=== PATIENT | male | born 2005 | race Caucasian/White ===

== ENCOUNTER 2023-01-17 03:44 | Inpatient (IN) | payer BC, SELFPAY ==
[2023-01-17] VITALS (9 sets, daily range): BP systolic 124–158; BP diastolic 69–97; PULSE 73–89; RESP 16–20; TEMP 36.8–37.3; O2SAT 97–100; BMI 19.5
--- NOTE | 2023-01-17 03:50 | PC.NURSE ---
Pt arrived to floor via EMS stretcher @ 5773 from [place].
--- NOTE | 2023-01-17 04:06 | CT_ITS ---
PROCEDURE INFORMATION: Exam: CT Lumbar Spine Without Contrast Exam date and time: 01/17/2023 4:40 AM Age: 17 years old Clinical indication: Numbness; Additional info: Ble numbness TECHNIQUE: Imaging protocol: Computed tomography of the lumbar spine without contrast. Radiation optimization: All CT scans at this facility use at least one of these dose optimization techniques: automated exposure control; mA and/or kV adjustment per patient size (includes targeted exams where dose is matched to clinical indication); or iterative reconstruction. Other protocol: This patient has received 0 known CTs and 0 known cardiac nuclear medicine studies in the 12 months prior to the current study. COMPARISON: No relevant prior studies available. FINDINGS: Bones/joints: No acute fracture. Normal alignment. No significant disc bulge or herniation. No severe spinal canal stenosis. No significant neural foraminal narrowing. Soft tissues: Unremarkable. IMPRESSION: No acute findings.
--- NOTE | 2023-01-17 04:12 | PC.NURSE ---
the patient was being admitted by the nurse and the nurse is to call when they are finished and the patient is ready for exam.
[2023-01-17 04:43] LABS: Basophils # 0.1 K/mm3 (0-0.2); Basophils % 0.3 % (0.1-2.0); Eosinophils % 0.1 % (0.1-12.0); Hematocrit 48.3 % (42.0-52.0); Hemoglobin 15.4 g/dL (14.1-18.0); Lymphocytes # 1.5 K/mm3 (0.7-4.5); Mean Corpuscular HGB Conc 31.8 g/dL (31.8-35.4); Mean Corpuscular Hemoglobin 31.1 pg (27.0-31.2); Mean Platelet Volume 7.5 fl (7.4-10.4); Monocytes % 4.6 % (1.7-9.3); Neutrophils # 18.3 K/mm3 (1.8-7.8); Platelet Count 280 K/mm3 (142-424); Red Blood Count 4.93 M/mm3 (4.60-6.20); Red Cell Distribution Width 13.5 % (11.5-17.5); White Blood Count 20.8 K/mm3 (4.5-13.0)
--- NOTE | 2023-01-17 04:47 | PC.NURSE ---
RECEIVED PHONE REPORT FROM Kayli HILLIARD RN/ED [facility] AT 0245. PATIENT ARRIVED HERE AT [facility] AT 0345 VIA [facility] . TAKES NO HOME MEDS. NKDA. MATERNAL GRANDMOTHER ACCOMPANIED PATIENT. PATIENT LIVES WITH GRANDMOTHER.
[2023-01-17 04:50] LABS: MANUAL DIFFERENTIAL MANUAL DIFFERENTIAL (MANUAL DIFF)
[2023-01-17 04:51] LABS: Alanine Aminotransferase 354 U/L (12-78); Albumin Level 4.4 g/dl (3.5-5.0); Albumin/Globulin Ratio 1.5 (1.1-1.8); Alkaline Phosphatase 84 U/L (38-126); Anion Gap 8.1 mEq/L (5-15); Bilirubin,Total 1.1 mg/dl (0.2-1.3); Blood Urea Nitrogen 29 mg/dl (9-20); Calcium 8.7 mg/dl (8.4-10.2); Carbon Dioxide 27 mmol/L (22.0-30.0); Chloride 107 mmol/L (98-107); Estimated Glomerular Filt Rate 86 ml/min (>60); GFR (African American) 104 ML/MIN (>60); Glucose 93 mg/dl (74-100); Potassium 4.1 mmoL/L (3.5-5.1); Sodium 138 mmol/L (136-145); Total Protein,Serum 7.4 g/dl (6.3-8.2)
--- NOTE | 2023-01-17 04:54 | EXP.HP ---
History of Present Illness *Admission Date: 01/17/23 *Reason for visit:: elevated troponin *History of present illness: This is a 17-year-old male with history of POTS and HOCm, drug abuse who presents as a transfer from [facility] for evaluation of elevated troponin in the setting of known HOCM. Patient initially was seen at [facility] for complaints of lower extremity weakness. He reported laying in bed all day playing video games and when he went to get up he noticed weakness in his lower extremities. Of note, patient had recent overdose approximately 1 month ago. Grandmother at the bedside with whom patient lives with states that he was found unresponsive at that time, required CPR briefly with Narcan and was discharged home without further event. She reports that during the course of the day yesterday he slept most the day and was awake through the night playing video games. She reports hearing noises upstairs and went to check on him and was noted to be crawling on the ground Which prompted the visit to [facility] emergency department. Emergency department work-up significant for severely elevated troponin of 20,000. He was also noted to have a white blood cell count of 20 with no known infectious causes. Liver enzymes reveal elevated as well with 8 AST of 2000 and ALT of 377. UDS positive for marijuana and fentanyl. Dr. Moser was consulted by outside facility and recommended transfer here for echocardiogram and monitoring secondary to patient's history. Upon my review of case with outside hospital provider, CT chest abdomen and pelvis obtained without remarkable abnormalities. He did have a downtrend in his troponin to 16,000. It was reported to me that patient was able to move his lower extremities at that time. Vital signs were stable and patient was in no distress at the time of transfer. [facility] Disclaimer: The information contained in this section may have been updated after the patient was seen, as this information can be updated by other users. Medical History ADHD Aspergers' syndrome Autism POTS (postural orthostatic tachycardia syndrome) Family History Fibromyalgia Mother H/O: HTN (hypertension) Mother Social History (Updated 01/17/23 @ 04:46 by Annabella Hernández RN) Smoking Status: Current some day smoker alcohol intake: never current occupational status: unemployed Travel in the last 8 weeks: None adopted: No caregiver/support person: Yes (MATERNAL GRANDMOTHER) foster care: No housing: house lives independently: No marital status: single education level: high school service: No custodial: No pets and animals: Yes (CATS X 2) leisure activities: games sexually active: Yes Review of Systems Review of Systems Review of systems:: pertinent systems reviewed and negative unless documented below *Cardiovascular Comments: Denies chest pain *Genitourinary Comments: reports was able to urinate in urinal at outside hospital *Musculoskeletal Musculoskeletal: Reports numbness *Neurologic Neurologic: Reports numbness and Reports paresthesias Comments: numbness of bilateral lower extremities Meds Home Medications and Allergies Home Medications Medication Instructions Recorded Confirmed Type No Known Home Medications 01/17/23 01/17/23 History New Prescriptions to Start Prescriptions: Allergies Allergy/AdvReac Type Severity Reaction Status Date / Time No Known Allergies Allergy Verified 01/17/23 05:25 Exam Data for Last 24 hours Vital signs and Labs for Last 24 Hours: Pulse 85 01/17/23 04:00 Laboratory Results - last 24 hr 01/17/23 04:20: WBC 20.8 H*, RBC 4.93, Hgb 15.4, Hct 48.3, MCV 98.0 H, MCH 31.1, MCHC 31.8, RDW 13.5, Plt Count 280, MPV 7.5, Neut % (Auto) 88.0 H, Lymph % (Auto) 7.0 L, [place]
[2023-01-17 05:08] LABS: Procalcitonin 15.2 ng/mL (0.0-2.0)
[2023-01-17 05:10] LABS: Troponin I 7.23 ng/ml (0.00-0.034)
[2023-01-17 05:22] LABS: Thyroid Stimulating Hormone 0.34 uIU/mL (0.465-4.68)
[2023-01-17 05:26] LABS: Microscopic, Urine URINE MICROSCOPIC (MICROSCOPIC)
[2023-01-17 05:28] LABS: Appearance,Urine CLEAR (Clear); Bilirubin,Urine Negative (Negative); Blood, Urine 3+ (Negative); Color,Urine YELLOW (Yellow); Glucose,Urine (UA) Negative (Negative); Ketones,Urine TRACE (Negative); Leukocyte Esterase,Urine Negative (Negative); Nitrate,Urine Negative (Negative); PH,Urine 5.5 (5.0-8.5); Protein,Urine 1+ (Negative); Urobilinogen,Urine 0.2 EU/dl (0.2)
[2023-01-17 05:42] LABS: Amorphous Sediment,Urine Trace /lpf; Bacteria,Urine 1+ /lpf; WBC,Urine Occasional #/hpf (0-3)
[2023-01-17 05:46] LABS: Lymphocytes % 5 % (10-50); Monocytes % 1 % (2-9); Neutrophils % 93 % (42-76); Total Cells Counted 100
[2023-01-17 05:47] LABS: Platelet Estimate Normal; RBC Morphology Normal
[2023-01-17 05:51] LABS: Aspartate Amino Transferase 1438 U/L (17-59)
[2023-01-17 05:52] LABS: C-Reactive Protein 51.1 mg/L (0-4)
[2023-01-17 05:54] LABS: Erythrocyte Sedimentation Rate 2 mm/hr (0-15)
[2023-01-17 05:56] LABS: NT Pro Brain Natriuretic Pep. 929 pg/mL (0-125)
[2023-01-17 05:59] LABS: Folate 5.71 ng/mL; Vitamin B12 746 pg/mL (239-931)
[2023-01-17 06:04] LABS: Free T4 (Free Thyroxine) 0.94 ng/dl (0.78-2.19)
--- NOTE | 2023-01-17 06:12 | PC.NURSE ---
AT 0510 ABNORMAL TROPONIN 7.23CALLED TO Braulio COLEY NP.
[2023-01-17 06:27] LABS: Acetaminophen < 10 ug/ml (10-30)
[2023-01-17 07:30] LABS: Troponin I 6.03 ng/ml (0.00-0.034)
[2023-01-17 07:33] LABS: INR 1.12 (0.9-1.1)
[2023-01-17 07:38] LABS: Creatine Kinase > 1600 U/L (55-170)
--- NOTE | 2023-01-17 07:45 | PC.NURSE ---
reported critical labs to
--- NOTE | 2023-01-17 07:48 | PC.NURSE ---
pt reports last use of fentanyl was 3 days ago. states he is coming off of it and intends to quit. reports ongoing marijuana use. i attempted to ambulate pt to but he has severe weakness and uncoordinated in ble
--- NOTE | 2023-01-17 08:54 | EXP.PHA.CONS ---
Pharmacy Consult Date: 01/17/23 Time: 08:54 Referring provider: DR. RENE Reason for Consult:: VANCOMYCIN DOSING Allergies Allergy/AdvReac Type Severity Reaction Status Date / Time No Known Allergies Allergy Verified 01/17/23 05:25 Home Medications Medication Instructions Recorded Confirmed Type No Known Home Medications 01/17/23 01/17/23 History New Prescriptions to Start Prescriptions: Height: 1.75 m Weight: 60.146 kg Laboratory Results:: Laboratory Results - last 24 hr 01/17/23 04:20: WBC 20.8 H*, RBC 4.93, Hgb 15.4, Hct 48.3, MCV 98.0 H, MCH 31.1, MCHC 31.8, RDW 13.5, Plt Count 280, MPV 7.5, Neut % (Auto) 88.0 H, Lymph % (Auto) 7.0 L, Warren % (Auto) 4.6, Eos % (Auto) 0.1, Baso % (Auto) 0.3, Neut # (Auto) 18.3 H, Lymph # (Auto) 1.5, Warren # (Auto) 1.0, Eos # (Auto) 0.0, Baso # (Auto) 0.1, Total Counted 100, Neutrophils % (Manual) 93 H, Lymphocytes % (Manual) 5 L, Atypical Lymphs % 1.0, Monocytes % (Manual) 1 L, Platelet Estimate Normal, RBC Morphology Normal 01/17/23 04:20: Sodium 138, Potassium 4.1, Chloride 107, Carbon Dioxide 27, Anion Gap 8.1, BUN 29 H, Creatinine 1.10, Estimated GFR 86, Est GFR ( Amer) 104, Glucose 93, Calcium 8.7, Magnesium 3.0 H, Total Bilirubin 1.1, AST 1438 H*, ALT 354 H*, Alkaline Phosphatase 84, Total Creatine Kinase > 1600 H*, Troponin I 7.23 H, Total Protein 7.4, Albumin 4.4, Globulin 3.0, Albumin/Globulin Ratio 1.5 01/17/23 04:20: Lactate 1.0 01/17/23 04:20: Vitamin B12 746, Folate 5.71 01/17/23 04:20: 25-OH Vitamin D Total 20.0 L 01/17/23 04:20: Procalcitonin 15.2 H, TSH 0.34 L 01/17/23 04:20: Free T4 0.94 01/17/23 04:20: NT-Pro-B Natriuret Pep 929 H 01/17/23 04:20: ESR 2 01/17/23 04:20: C-Reactive Protein 51.1 H 01/17/23 04:20: Acetaminophen < 10 L 01/17/23 04:20: PT 12.0, INR 1.12 H 01/17/23 05:21: Urine Color Yellow, Urine Appearance Clear, Urine pH 5.5, Ur Specific [place] 1.010, Urine Protein 1+, Urine Glucose (UA) Negative, Urine Ketones Trace, Urine Blood 3+, Urine Nitrate Negative, Urine Bilirubin Negative, Urine Urobilinogen 0.2, Ur Leukocyte Esterase Negative, Urine RBC 10-20, Urine WBC Occasional, Ur Squamous Epith Cells 3-5, Amorphous Sediment Trace, Urine Bacteria 1+ 01/17/23 06:58: Troponin I 6.03 H Medical History: Medical History (Updated 01/17/23 @ 05:02 by Sherita Casillas [facility]) ADHD Aspergers' syndrome Autism POTS (postural orthostatic tachycardia syndrome) Assessment and Plan Assessment and plan all Dx Assessment and Plan for all problems:: Pharmacokinetic dosing service Objective: Patient: Floor: Age: 17 yo Serum creatinine: 1.10 mg/dL Height: 68.9 Inches Weight (kg): 60 Assessment: IBW (kg): 70.47 Dosing wt(kg): 60 Estimated Creatinine clearance (ml/min): 91.7 CRCL method: Cockcroft and Gault using ibw(default). Drug selected: Vancomycin Loading dose (mg): Vd (liters): 45.0 (factor used: 0.75 L/kg) Juan Diego (hr-1): 0.081 Half life (hrs): 8.56 CLvanco=?? 3.645 L/hr Recommended dose: 1000 mg Interval: 12 hrs Infusion time (hrs): 2.0 Predicted peak (mcg/mL): 33.0 Predicted trough (mcg/mL): 14.68 Total body weight is being used for vancomycin dosing. Recommendations: Give Vancomycin 1000 mg q 12 hrs with an expected Cpeak of 33.0 mcg/ml and an expected Ctrough of 14.68 mcg/ml AUC 0-24 /VIVEK Data: VIVEK 0.5 mcg/mL:?? AUC/VIVEK:? 1097.4 VIVEK 1.0 mcg/mL:?? AUC/VIVEK:? 548.7 --------- VIVEK 1.5 mcg/mL:?? AUC/VIVEK:? 365.8 VIVEK 2.0 mcg/mL:?? AUC/VIVEK:? 274.3 Thank you for the consult, will continue to follow. -ARIAN FLOYD, TAMARD
--- NOTE | 2023-01-17 09:14 | PC.NURSE ---
pt denies any CP or SOA. only complaint is having no feeling in his lower extremities. says he is unable to bear weight on them and they feel numb
[2023-01-17 11:32] LABS: Troponin I 5.06 ng/ml (0.00-0.034)
--- NOTE | 2023-01-17 12:21 | PC.NURSE ---
tech note; notified nurse of high blood pressure for 1200 vital signs.
[2023-01-17 17:23] LABS: Alanine Aminotransferase 346 U/L (12-78); Albumin Level 4.1 g/dl (3.5-5.0); Albumin/Globulin Ratio 1.4 (1.1-1.8); Alkaline Phosphatase 80 U/L (38-126); Bilirubin,Total 1.1 mg/dl (0.2-1.3); Blood Urea Nitrogen 23 mg/dl (9-20); Calcium 8.4 mg/dl (8.4-10.2); Carbon Dioxide 28 mmol/L (22.0-30.0); Chloride 109 mmol/L (98-107); Creatinine Clearance Estimated 92 mL/min (50-200); Estimated Glomerular Filt Rate 86 ml/min (>60); GFR (African American) 104 ML/MIN (>60); Globulin 2.9 g/dL (1.3-3.2); Glucose 112 mg/dl (74-100); Sodium 139 mmol/L (136-145)
[2023-01-17 17:33] LABS: Aspartate Amino Transferase 1428 U/L (17-59)
[2023-01-17 17:41] LABS: Troponin I 3.84 ng/ml (0.00-0.034)
--- NOTE | 2023-01-17 18:06 | PC.NURSE ---
pt has denies any pain through out the shift. continues to report weakness in lower extremities. lungs are cta. reports having one bowel movement. is urinating okay. will continue to monitor
--- NOTE | 2023-01-17 19:24 | PC.NURSE ---
RESP PANEL COLLECTED AND SENT TO LAB AT 1915.
[2023-01-17 19:37] LABS: Adenovirus,PCR Not Detected (NotDetected); Bordetella Pertussis Not Detected (NotDetected); Chlamydophila Pneumoniae, PCR Not Detected (NotDetected); Coronavirus 19, PCR Not Detected (NotDetected); Coronavirus 229E Not Detected (NotDetected); Coronavirus NL63 Not Detected (NotDetected); Coronavirus OC43 Not Detected (NotDetected); Coronovirus HKU1,PCR Not Detected (NotDetected); Human Metapneumovirus Not Detected (NotDetected); Influenza A, PCR Not Detected (NotDetected); Influenza AH1, 2009 Not Detected (NotDetected); Influenza AH1, PCR Not Detected (NotDetected); Influenza AH3,PCR Not Detected (NotDetected); Influenza B, PCR Not Detected (NotDetected); Mycoplasma Pneumoniae, PCR Not Detected (NotDetected); Parainfluenza 1, PCR Not Detected (NotDetected); Parainfluenza 2, PCR Not Detected (NotDetected); Parainfluenza 3, PCR Not Detected (NotDetected); Parainfluenza 4, PCR Not Detected (NotDetected); Respiratory Syncytial Virus Not Detected (NotDetected); Rhinovirus/Enterovirus Not Detected (NotDetected)
--- NOTE | 2023-01-17 21:48 | PC.NURSE ---
PATIENT REPORTS THAT HE CONTINUES TO HAVE NUMBNESS/TINGLING/LOSS OF MOBILITY OF LOWER LEGS BASICALLY FROM KNEES DOWN ISELA IN FEET. CAN MOVE TOES SLIGHTLY. FEET WARM/DRY. PEDAL PULSES PRESENT. NO PLANTAR REFLEX NOTED BILAT FEET. PARESIS ONGOING. WALKER PROVIDED TO ASSIST PATIENT TO BR. REQUIRES 1-2 ASSIST. PATIENT DENIES PAIN.
[2023-01-18] VITALS (8 sets, daily range): BP systolic 122–172; BP diastolic 63–88; PULSE 63–90; RESP 16–20; TEMP 36.6–37.2; O2SAT 93–99; BMI 19.8
--- NOTE | 2023-01-18 05:37 | PC.NURSE ---
MATERNAL GRANDMOTHER AT BEDSIDE.
[2023-01-18 08:16] LABS: Chloride 113 mmol/L (98-107); Potassium 3.9 mmoL/L (3.5-5.1); Sodium 140 mmol/L (136-145)
[2023-01-18 08:18] LABS: Alanine Aminotransferase 303 U/L (12-78); Blood Urea Nitrogen 10 mg/dl (9-20); Creatinine Clearance Estimated 146 mL/min (50-200); Estimated Glomerular Filt Rate 145 ml/min (>60); GFR (African American) 176 ML/MIN (>60)
[2023-01-18 08:19] LABS: Albumin Level 3.5 g/dl (3.5-5.0); Albumin/Globulin Ratio 1.3 (1.1-1.8); Alkaline Phosphatase 56 U/L (38-126); Anion Gap 2.9 mEq/L (5-15); Bilirubin,Total 1.2 mg/dl (0.2-1.3); Calcium 8.1 mg/dl (8.4-10.2); Carbon Dioxide 28 mmol/L (22.0-30.0); Globulin 2.6 g/dL (1.3-3.2); Glucose 121 mg/dl (74-100); Magnesium 1.9 mg/dl (1.6-2.3); Total Protein,Serum 6.1 g/dl (6.3-8.2)
[2023-01-18 08:31] LABS: Aspartate Amino Transferase 887 U/L (17-59)
[2023-01-18 08:41] LABS: Basophils # 0.1 K/mm3 (0-0.2); Basophils % 0.5 % (0.1-2.0); Eosinophils % 0.2 % (0.1-12.0); Hematocrit 41.4 % (42.0-52.0); Hemoglobin 13.3 g/dL (14.1-18.0); Lymphocytes # 2.2 K/mm3 (0.7-4.5); Lymphocytes % 17.6 % (10-50); Mean Corpuscular Hemoglobin 32.1 pg (27.0-31.2); Mean Corpuscular Volume 100.3 fl (80-94); Mean Platelet Volume 7.4 fl (7.4-10.4); Monocytes # 0.6 K/mm3 (0.1-1.0); Monocytes % 5.1 % (1.7-9.3); Neutrophils # 9.5 K/mm3 (1.8-7.8); Neutrophils % 76.6 % (37.0-80.0); Platelet Count 228 K/mm3 (142-424); Red Blood Count 4.13 M/mm3 (4.60-6.20); Red Cell Distribution Width 13.6 % (11.5-17.5); White Blood Count 12.4 K/mm3 (4.5-13.0)
[2023-01-18 08:47] LABS: Troponin I 2.28 ng/ml (0.00-0.034)
[2023-01-18 09:50] LABS: Creatine Kinase > 1600 U/L (55-170)
[2023-01-18 09:52] LABS: Creatine Kinase > 1600 U/L (55-170)
[2023-01-18 12:09] LABS: Hep A Ab, IgM Negative (Negative); Hep A Ab, Total Positive (Negative)
--- NOTE | 2023-01-18 12:26 | HMH.PTEV ---
Physical Therapy Evaluation Rehab PT IP Evaluation Start: 01/17/23 18:40 Freq: ONCE Status: Active Protocol: Document 01/18/23 11:37 QASIM (Rec: 01/18/23 12:23 QASIM [id number]) Subjective/History History History Pt is a 17 y/o male that reports he slept most of the day yesterday (01/17/23) and when he got out of bed was unable to walk due to BLE feeling numb and giving out on him. Pt reports his grandmother heard noises from upstairs where she found him crawling on the ground. Pt's gandmother reports she had to call an ambulance and he was transported to [facility] ER. Pt denied hitting his head, LOC, or back/leg injury. Per history and physical note, emergency department work-up significant for severely elevated troponin of 20,000. He was also noted to have a white blood cell count of 20 with no known infectious causes. Liver enzymes reveal elevated as well with 8 AST of 2000 and ALT of 377. UDS positive for marijuana and fentanyl. Of note, patient had recent overdose approximately 1 month ago. Grandmother at the bedside with whom patient lives with states that he was found unresponsive at that time, required CPR briefly with Narcan and was discharged home without further event. Medical History: ADHD, ASpergers' syndrome, Autism, POTS syndrome, hx drug abuse including fentanyl Subjective Subjective Pt reports prior to hospitalization he was independent with all ADLs and ambulation. Pt reports he is currently unemployed. Pt reports he lives in a two- story home with his
--- NOTE | 2023-01-18 13:50 | EXP.ACUTE.PN ---
Subjective *Date: 01/18/23 *Time: 13:59 Interval history: Feeling somewhat better today. Able to ambulate with one-person assist and a walker. Still having tingling in legs bilaterally. Tolerating p.o. intake. Voiding independently. States urine is light yellow to clear. Denies chest pain, shortness of breath, confusion. Medical Exam Vital signs and Labs for Last 24 Hours: Vital Signs Temp Pulse Pulse Resp BP Pulse Ox 01/18/23 12:00 70 01/18/23 12:00 98.9 F 85 18 139/86 98 01/18/23 08:00 80 01/18/23 08:00 98.1 F 66 20 172/88 H 93 L 01/18/23 04:00 64 01/18/23 04:00 98.4 F 78 16 122/72 99 01/18/23 04:15 64 01/18/23 00:00 78 01/18/23 00:54 78 01/17/23 20:00 75 01/18/23 00:00 98.8 F 78 16 133/80 99 01/17/23 23:47 75 01/17/23 20:00 99 01/17/23 20:00 99.1 F 75 18 129/69 99 01/17/23 16:00 83 01/17/23 16:00 98.7 F 73 20 134/79 97 Intake and Output 01/17/23 01/18/23 01/18/23 23:59 07:59 15:59 Intake Total 935 / 2135 1095 / 1935 840 / 1935 Output Total 350 / 1600 1150 / 1350 200 / 1350 Balance 585 / 535 -55 / 585 640 / 585 Intake: Intake, Oral Amount 240 / 1440 840 / 840 Intake, Total IV Amount 695 / 695 1095 / 1095 0.9 % Sodium Chloride 1,000 ml 395 / 395 795 / 795 @ 125 mls/hr IV .Q8H NELI Rx#: [id number] Piperacillin/Tazo 3.375 gm In 0 50 / 50 50 / 50 .9 % Sodium Chloride 50 ml @ 100 mls/hr IV Q8H NELI Rx#: [id number] Vancomycin HCl 1,000 mg In 0.9 250 / 250 250 / 250 % Sodium Chloride 250 ml @ 125 mls/hr IV Q12H NELI Rx#:[id number] Output: Output, Urine Amount 350 / 1600 1150 / 1350 200 / 1350 Other: Number of Unmeasured Voids 1 1 Number of Bowel Movements 1 1 1 Weight 60.872 kg Patient Weight 01/18/23 23:59 Weight 60.872 kg Laboratory Results - last 24 hr 01/17/23 06:58: Hepatitis A IgM Ab Negative, Hepatitis A Ab Total Positive A 01/17/23 17:00: Total Creatine Kinase > 1600 H* 01/17/23 17:00: Sodium 139, Potassium 4.0, Chloride 109 H, Carbon Dioxide 28, Anion Gap 6.0, BUN 23 H, Creatinine 1.10, Estimated Creat Clear 92, Estimated GFR 86, Est GFR ( Amer) 104, Glucose 112 H D, Calcium 8.4, Total Bilirubin 1.1, AST 1428 H*, ALT 346 H*, Alkaline Phosphatase 80, Total Protein 7.0, Albumin 4.1, Globulin 2.9, Albumin/Globulin Ratio 1.4 01/17/23 17:00: Troponin I 3.84 H 01/17/23 19:15: Chlamy pneumoniae PCR Not detected, Adenovirus (PCR) Not detected, B. pertussis DNA (PCR) Not detected, Coronavirus OC43 (PCR) Not detected, Coronavirus HKU1 (PCR) Not detected, Coronavirus 229E (PCR) Not detected, SARS-CoV-2 (PCR) Not detected, Coronavirus NL63 (PCR) Not detected, Human Metapneumovir PCR Not detected, Influenza A (H1) PCR Not detected, Influ A (H1N1/09) PCR Not detected, Influenza A (H3) PCR Not detected, Influenza Type A (PCR) Not detected, Influenza Type B (PCR) Not detected, M. pneumoniae (PCR) Not detected, Parainfluenza 1 (PCR) Not detected, Parainfluenza 2 (PCR) Not detected, Parainfluenza 3 (PCR) Not detected, Parainfluenza 4 (PCR) Not detected, RSV (PCR) Not detected, Entero/Rhino (PCR) Not detected 01/18/23 07:50: WBC 12.4 D, RBC 4.13 L, Hgb 13.3 L, Hct 41.4 L, MCV 100.3 H, MCH 32.1 H, MCHC 32.0, RDW 13.6, Plt Count 228, MPV 7.4, Neut % (Auto) 76.6, Lymph % (Auto) 17.6, Curry % (Auto) 5.1, Eos % (Auto) 0.2, Baso % (Auto) 0.5, Neut # (Auto) 9.5 H, Lymph # (Auto) 2.2, [place] # (Auto) 0.6, Eos # (Auto) 0.0, Baso # (Auto) 0.1 01/18/23 07:50: Sodium 140, Potassium 3.9, Chloride 113 H, Carbon Dioxide 28, Anion Gap 2.9 L, BUN 10 D, Creatinine 0.70 D, Estimated Creat Clear 146, Estimated GFR 145, Est GFR ( Amer) 176 D, Glucose 121 H, Calcium 8.1 L, Magnesium 1.9 D, Total Bilirubin 1.2, AST 887 H* D, ALT 303 H*, Alkaline Phosphatase 56, Total Creatine Kinase > 1600 H*, Total Protein 6.1 L, Albumin 3.5 D, Globulin 2.6, Albumin/Clarissa
[2023-01-18 16:52] LABS: HIV Screen 4th Generation wRfx NON REACTIVE; Hepatitis B Core Antibody IgM NEGATIVE; Hepatitis B Surf Ab Quant <3.1
[2023-01-18 16:53] LABS: Hepatitis C Antibody NON REACTIVE
[2023-01-18 17:46] LABS: Alanine Aminotransferase 272 U/L (12-78); Albumin Level 3.8 g/dl (3.5-5.0); Albumin/Globulin Ratio 1.5 (1.1-1.8); Alkaline Phosphatase 67 U/L (38-126); Bilirubin,Total 1.1 mg/dl (0.2-1.3); Blood Urea Nitrogen 13 mg/dl (9-20); Calcium 8.7 mg/dl (8.4-10.2); Carbon Dioxide 27 mmol/L (22.0-30.0); Creatinine Clearance Estimated 146 mL/min (50-200); Estimated Glomerular Filt Rate 145 ml/min (>60); GFR (African American) 176 ML/MIN (>60); Globulin 2.6 g/dL (1.3-3.2); Glucose 96 mg/dl (74-100); Potassium 4.3 mmoL/L (3.5-5.1); Sodium 140 mmol/L (136-145); Total Protein,Serum 6.4 g/dl (6.3-8.2)
[2023-01-18 17:49] LABS: Vancomycin,Trough 5.4 ug/mL (5.0-10.0)
[2023-01-18 17:51] LABS: Aspartate Amino Transferase 745 U/L (17-59)
[2023-01-18 17:55] LABS: Anion Gap 6.3 mEq/L (5-15); Chloride 111 mmol/L (98-107)
--- NOTE | 2023-01-18 18:03 | PC.NURSE ---
spoke with night watch. instructed to give dose now
[2023-01-18 20:28] LABS: Creatine Kinase > 1600 U/L (55-170)
[2023-01-19] VITALS (8 sets, daily range): BP systolic 114–137; BP diastolic 63–83; PULSE 58–105; RESP 16–18; TEMP 36.4–37.4; O2SAT 91–99; BMI 19.8
--- NOTE | 2023-01-19 06:42 | PC.NURSE ---
Pt. has family with him in the room tonight. He is weak and requires assist times one with his walker to get to the restroom.
[2023-01-19 07:07] LABS: Basophils # 0.1 K/mm3 (0-0.2); Basophils % 0.5 % (0.1-2.0); Eosinophils % 0.4 % (0.1-12.0); Hematocrit 42.2 % (42.0-52.0); Lymphocytes # 1.6 K/mm3 (0.7-4.5); Lymphocytes % 14.7 % (10-50); Mean Corpuscular HGB Conc 30.8 g/dL (31.8-35.4); Mean Corpuscular Hemoglobin 30.8 pg (27.0-31.2); Mean Corpuscular Volume 99.8 fl (80-94); Mean Platelet Volume 7.4 fl (7.4-10.4); Monocytes # 0.6 K/mm3 (0.1-1.0); Monocytes % 5.2 % (1.7-9.3); Neutrophils # 8.5 K/mm3 (1.8-7.8); Neutrophils % 79.1 % (37.0-80.0); Platelet Count 240 K/mm3 (142-424); Red Blood Count 4.22 M/mm3 (4.60-6.20); Red Cell Distribution Width 13.5 % (11.5-17.5); White Blood Count 10.7 K/mm3 (4.5-13.0)
[2023-01-19 07:11] LABS: Chloride 113 mmol/L (98-107); Sodium 143 mmol/L (136-145)
[2023-01-19 07:12] LABS: Potassium 4.1 mmoL/L (3.5-5.1)
[2023-01-19 07:14] LABS: Alanine Aminotransferase 265 U/L (12-78); Albumin Level 3.7 g/dl (3.5-5.0); Albumin/Globulin Ratio 1.3 (1.1-1.8); Alkaline Phosphatase 57 U/L (38-126); Anion Gap 7.1 mEq/L (5-15); Aspartate Amino Transferase 610 U/L (17-59); Bilirubin,Total 1.4 mg/dl (0.2-1.3); Blood Urea Nitrogen 11 mg/dl (9-20); Calcium 8.5 mg/dl (8.4-10.2); Carbon Dioxide 27 mmol/L (22.0-30.0); Creatinine Clearance Estimated 146 mL/min (50-200); Estimated Glomerular Filt Rate 145 ml/min (>60); GFR (African American) 176 ML/MIN (>60); Globulin 2.8 g/dL (1.3-3.2); Glucose 90 mg/dl (74-100); Total Protein,Serum 6.5 g/dl (6.3-8.2)
[2023-01-19 07:15] LABS: Magnesium 1.8 mg/dl (1.6-2.3)
[2023-01-19 07:26] LABS: Troponin I 1.73 ng/ml (0.00-0.034)
[2023-01-19 08:01] LABS: Creatine Kinase > 16000 U/L (55-170)
--- NOTE | 2023-01-19 08:36 | PC.NURSE ---
Patient grandmother and friend at bedside.
--- NOTE | 2023-01-19 09:59 | PC.NURSE ---
Dr. Edwards at bedside.
--- NOTE | 2023-01-19 10:13 | HMH.OTEV ---
OT Inpatient Evaluation Rehab OT IP Evaluation Start: 01/17/23 18:40 Freq: ONCE Status: Active Protocol: Document 01/19/23 09:59 MISSYHENNA (Rec: 01/19/23 10:13 SAQIB [id number]) Rehab OT IP Assessment Subjective History Pt was seen resting in bed upon arrivial. Pt was oriented x4 person, place, , and year. Pt was agreeable to engage in therapy evaluation. Pt was admitted to [facility] on 01/17 due to elevated troponin. Pt reports that he was independent in all ADLs and IADLs. Pt reports that he lived with his grandmother in a house, where there is six steps upon entering the house and ~ 10 steps upon entering his bedroom on the second floor. He reports that he was still able to drive. His grandmother reports that she is retired and will be at home with him upon departure. His grandmother also reports that she has access to a walker at home. Pt has a past medical history of the following: ADHD Aspergers' syndrome Autism POTS (postural orthostatic tachycardia syndrome) Pt was left resting in bed with call mariscal and all other needs within reach. Subjective My foot feels numb. Objective Patient Orientation Person,Place,Birthday,Year Upper Extremity Gross ROM WNL Bed Mobility bed mobility-scooting,bed mobility - supine/sit Assist Level Independent Transfer Training Sit/Stand Transfer Assist Level Supervision/Stand by Performing Toilet Hygiene Ability Independent Overall Commode/Toilet Transfer Ability Standby Assistance Commode/Toilet Transfer Technique Sit to/from Ambulatory decrease in endurance Yes Rehab OT IP prob,goals,plan Problems Date of Evaluation: 01/19/23 OT IP Problems Bed Mobility,Transfers,Balance ,Self care,Safety Rehab Potential Re
--- NOTE | 2023-01-19 11:20 | EXP.CARD.CON ---
History of Present Illness History of Present Illness Consult date: 01/19/23 Requesting physician: Ruddy Edwards Chief complaint: elevated troponin, rhabdomyolysis Additional Medical History:: 1. History of HOCM 2. History of POTS 3. ADHD A. Self medicates with marijuana 4. Asperger's Syndrome 5. Rhabdomyolysis 6. Elevated troponin, 12/2022 A. Echo History of present illness: This is a 17-year-old male with history of POTS and HOCm, drug abuse who presents? as a transfer from [facility] for evaluation of elevated troponin in the setting of known HOCM.? Patient initially was seen at [facility] for complaints of lower extremity weakness.? He reported laying in bed all day playing video games and when he went to get up he noticed weakness in his lower extremities.? Of note, patient had recent overdose approximately 1 month ago. ? Grandmother at the bedside with whom patient lives with states that he was found unresponsive at that time, required CPR briefly with Narcan and was discharged home without further event.? She reports that during the course of the day yesterday he slept most the day and was awake through the night playing video games.? She reports? hearing noises upstairs and went to check on him and was noted to be crawling on the ground? Which prompted the visit to [facility] emergency department. ?Emergency department work-up significant for severely elevated troponin of 20,000.? He was also noted to have a white blood cell count of 20 with no known infectious causes.? Liver enzymes reveal elevated as well with 8 AST of 2000 and ALT of 377.? UDS positive for marijuana and fentanyl.? Dr. Moser was consulted by outside facility and recommended transfer here for echocardiogram and monitoring secondary to patient's history. ?Upon my review of? case with outside hospital provider, CT chest abdomen and pelvis obtained without remarkable abnormalities.? He did have a downtrend in his troponin to 16,000.? It was reported to me that patient was able to move his lower extremities at that time.? Vital signs were stable and patient was in no distress at the time of transfer. The above per Dr. Edwards Events above confirmed with patient and grandmother (with whom he lives). Reportedly diagnosed with HOCM and was seen at [facility] by Pediatric Cardiology until recently when he turned 17 and aged out. He does not recall any episodes of syncope and does not take any medication other than marijuana. He thinks he had an MRI and echo in the past but records unavailable at this time. Echo today with results pending. His labs have improved and clnically he is improving but not able to ambulate without walker at this time. [facility] Disclaimer: The information contained in this section may have been updated after the patient was seen, as this information can be updated by other users. Medical History ADHD Aspergers' syndrome Autism POTS (postural orthostatic tachycardia syndrome) Family History Fibromyalgia Mother H/O: HTN (hypertension) Mother Social History (Updated 01/17/23 @ 04:46 by Annabella Hernández RN) Smoking Status: Current some day smoker alcohol intake: never current occupational status: unemployed Travel in the last 8 weeks: None adopted: No caregiver/support person: Yes (MATERNAL GRANDMOTHER) foster care: No housing: house lives independently: No marital status: single education level: high school service: No long term: No pets and animals: Yes (CATS X 2) leisure activities: games sexually active: Yes Review of Systems *Cardiovascular Cardiovascular: Denies chest pain and Denies dyspnea *Respiratory Respiratory: Denies dyspnea *Musculoskeletal Musculoskeletal: Reports numbness *Neurologic Neurologic: Reports numbness and Reports paresthesias E
--- NOTE | 2023-01-19 14:30 | CA_ITS ---
APPROVED REPORT EXAM: Comprehensive 2D, Doppler, and color-flow Echocardiogram Certified Orthoptist: Mary Ponce CRT Ht: 5 ft 8 in Wt: 134lbs BSA: 1.72 BP: 137/79 mmHg Indications: POTS, HOCM, smoker, Asperer's syndrome, autism, 2D Dimensions LVOT 1.99 cm (M/F) 1.5-2.5 LA Volume 38.60 mL LA Volume Index 21.80 mL/m2 (M/F) 16-34 M-Mode Dimensions RVDd 2.66 cm (0.9-2.6) LA Diam 2.62 cm (1.9-4.0) LVDd 4.72 cm (3.5-5.7) Ao Diam 3.33 cm (2.0-3.7) LVDs 3.11 cm (3.5-5.7) IVSd 1.13 cm (0.6-1.1) PWd 1.31 cm (0.6-1.1) EF (Teich) 63.10% FS 34.10% EDV (Teich) 103.40 mL TAPSE 1.40 (<1.7) ESV (Teich) 38.20 mL LV Diastology E Decel Time 153.00 (160-240 msec) E/A Ratio 4.35 MED E' 14.00 (< 7 cm/sec) MED A' 6.50 cm/s E'/MED E' Ratio 7.52 (>14) LAT E' 23.20 (<10 cm/sec) LAT A' 2.60 cm/s E/LAT E' Ratio 4.54 (>14) Aortic Valve AO Peak GR. 10.10 mmHg Mitral Valve MV A Velocity 24.00 (40-130 cm/s) E/A Ratio 4.35 MV Decel. Time 153.00 (160-240 ms) Pulmonary Valve PV Peak Velocity 120.00 (50-150 cm/s) Tricuspid Valve TR P. Velocity 208.00 cm/s RAP Estimate 10.00 mmHg RVSP 27.30 mmHg Left Ventricle Left atrium normal size, left ventricle is normal size, estimated ejection fraction 55% with no regional wall motion abnormality, there is no asymmetrical septal hypertrophy seen. Diastolic parameters are inconclusive. Right Ventricle Right atrium right ventricular normal size and contractility. Aortic Valve Aortic valve is grossly normal there is no aortic stenosis aortic insufficiency. Mitral Valve Mitral valve is grossly normal, there is trace mitral regurgitation. Tricuspid Valve Tricuspid grossly normal, there is trace tricuspid regurgitation, tricuspid regurgitation jet velocity is inadequate for calculation of the right ventricular systolic pressure. Pulmonic Valve Pulmonic valve is poorly visualized. Great Vessels Aortic root is normal size. Inferior vena cava is normal size with normal inspiratory collapse. Pericardium No significant pericardial effusion noted. Conclusion 1. Normal left ventricular size preserved left ventricular systolic function, estimated ejection fraction 55% with no regional wall motion abnormality, there is no asymmetrical septal hypertrophy, or intracavitary gradient seen. Diastolic parameters are inconclusive. 2. Trace mitral and tricuspid regurgitation. 3. No significant pericardial effusion noted. 4. Inferior vena cava is normal size with normal inspiratory collapse. Electronically signed by : Chandana Navarro MD 01/19/2023 17:28:43
--- NOTE | 2023-01-19 19:44 | EXP.ACUTE.PN ---
Subjective *Date: 01/19/23 *Time: 19:44 Interval history: Working with therapy today. Some improvement in ambulation. Ambulating with walker and no assistance. Denies any fevers. Tolerating p.o. intake. Improvement in sensation in right lower extremity. Left leg still showing tingling distal to the knee and in left heel. Strength intact bilaterally, 5/5 in right lower extremity. 4/5 left lower extremity with decreased strength on dorsiflexion of foot Medical Exam Vital signs and Labs for Last 24 Hours: Vital Signs Temp Pulse Pulse Resp BP Pulse Ox 01/19/23 16:00 105 H 01/19/23 16:00 97.5 F L 87 18 134/83 99 01/19/23 12:00 80 01/19/23 11:26 99.3 F 68 16 137/81 99 01/19/23 08:00 98.2 F 60 16 124/76 91 L 01/19/23 08:00 70 01/19/23 07:36 97 01/19/23 04:00 80 01/19/23 04:00 98.0 F 58 L 16 118/68 96 01/19/23 00:00 99.0 F 83 16 114/68 99 01/18/23 20:00 90 01/18/23 20:00 97 01/18/23 20:00 98.0 F 84 16 124/77 97 Intake and Output 01/19/23 01/19/23 01/19/23 07:59 15:59 23:59 Intake Total 2412 / 3372 480 / 3372 480 / 3372 Output Total 129 / 129 0 / 129 0 / 129 Balance 2283 / 3243 480 / 3243 480 / 3243 Intake: Intake, Oral Amount 480 / 960 480 / 960 Intake, Total IV Amount 2412 / 2412 0.9 % Sodium Chloride 1,000 ml 2112 / 2112 @ 100 mls/hr IV .Q10H [facility] Rx#: [id number] Piperacillin/Tazo 3.375 gm In 0 50 / 50 .9 % Sodium Chloride 50 ml @ 100 mls/hr IV Q8H [facility] Rx#: [id number] Vancomycin HCl 1,000 mg In 0.9 250 / 250 % Sodium Chloride 250 ml @ 125 mls/hr IV Q12H [facility] Rx#:[id number] Output: Output, Urine Amount 129 / 129 0 / 129 0 / 129 Other: Number of Unmeasured Voids 2 Weight 60.736 kg Patient Weight 01/19/23 23:59 Weight 60.736 kg Laboratory Results - last 24 hr 01/18/23 17:20: Total Creatine Kinase > 1600 H* 01/18/23 22:12: Vancomycin Peak 15.0 01/19/23 06:25: WBC 10.7, RBC 4.22 L, Hgb 13.0 L, Hct 42.2, MCV 99.8 H, MCH 30.8, MCHC 30.8 L, RDW 13.5, Plt Count 240, MPV 7.4, Neut % (Auto) 79.1, Lymph % (Auto) 14.7, [place] % (Auto) 5.2, Eos % (Auto) 0.4, Baso % (Auto) 0.5, Neut # (Auto) 8.5 H, Lymph # (Auto) 1.6, [place] # (Auto) 0.6, Eos # (Auto) 0.0, Baso # (Auto) 0.1 01/19/23 06:25: Sodium 143, Potassium 4.1, Chloride 113 H, Carbon Dioxide 27, Anion Gap 7.1, BUN 11, Creatinine 0.70, Estimated Creat Clear 146, Estimated GFR 145, Est GFR ( Amer) 176, Glucose 90, Calcium 8.5, Magnesium 1.8, Total Bilirubin 1.4 H, AST 610 H*, ALT 265 H, Alkaline Phosphatase 57, Total Creatine Kinase > 07813 H*, Troponin I 1.73 H, Total Protein 6.5, Albumin 3.7, Globulin 2.8, Albumin/Globulin Ratio 1.3 I & O for Labs for Last 24 Hours: Intake & Output 01/16/23 01/17/23 01/18/23 01/19/23 23:59 23:59 23:59 23:59 Intake Total 2135 / 2135 2415 / 2415 3372 / 3372 Output Total 1000 / 1600 1350 / 1350 129 / 129 Balance 1135 / 535 1065 / 1065 3243 / 3243 Weight 60.146 kg 60.872 kg 60.736 kg Microbiology Reports for the Last 24 Hours: Microbiology 01/17/23 04:20 Blood Blood Culture - Preliminary NO GROWTH AFTER 48 HOURS 01/17/23 04:20 Blood Blood Culture - Preliminary NO GROWTH AFTER 48 HOURS Constitutional: Present no acute distress and thin Head: Present atraumatic and normocephalic ENT: Present normal exam Comment:: Lesion on right chin tender to palpation, numerous pustules at sites of facial hair Neck: Present normal inspection Respiratory: Present CTA bilaterally and normal respiratory effort; Absent accessory muscle use, rhonchi, wheezes or crackles Cardiac: Present Reg Rate and Rhythm GI: Present normal bowel sounds; Absent tenderness Extremities: Present normal inspection; Absent joint swelling Comment:: Nontender to palpation of calves and thighs. Skin: Present intact; Absent cory
[2023-01-20] VITALS: BP 114/61; PULSE 70; PULSE 80; RESP 17; TEMP 37.2; O2SAT 99
[2023-01-20 04:00] VITALS: BP 122/65; PULSE 68; PULSE 70; RESP 17; TEMP 36.8; O2SAT 98; BMI 19.8
--- NOTE | 2023-01-20 06:23 | PC.NURSE ---
Pt has not voiced any c/o t/o shift to staff. Pt has been ambulating to BR with walker w/ standby assist. Grandmother and friend at bedside. Pt has been sinus arrhythmia on tele. Call light within reach.
[2023-01-20 06:47] LABS: Chloride 111 mmol/L (98-107); Sodium 143 mmol/L (136-145)
[2023-01-20 06:50] LABS: Alanine Aminotransferase 218 U/L (12-78); Albumin Level 3.7 g/dl (3.5-5.0); Albumin/Globulin Ratio 1.3 (1.1-1.8); Alkaline Phosphatase 57 U/L (38-126); Aspartate Amino Transferase 363 U/L (17-59); Bilirubin,Total 1.5 mg/dl (0.2-1.3); Blood Urea Nitrogen 12 mg/dl (9-20); Calcium 8.8 mg/dl (8.4-10.2); Carbon Dioxide 31 mmol/L (22.0-30.0); Creatinine Clearance Estimated 171 mL/min (50-200); Estimated Glomerular Filt Rate 174 ml/min (>60); GFR (African American) 210 ML/MIN (>60); Globulin 2.8 g/dL (1.3-3.2); Glucose 91 mg/dl (74-100); Total Protein,Serum 6.5 g/dl (6.3-8.2)
[2023-01-20 06:51] LABS: Magnesium 1.8 mg/dl (1.6-2.3)
[2023-01-20 07:06] LABS: Basophils # 0.1 K/mm3 (0-0.2); Basophils % 0.7 % (0.1-2.0); Eosinophils # 0.1 K/mm3 (0.0-0.4); Eosinophils % 0.6 % (0.1-12.0); Hematocrit 41.8 % (42.0-52.0); Hemoglobin 13.2 g/dL (14.1-18.0); Lymphocytes # 1.6 K/mm3 (0.7-4.5); Lymphocytes % 18.7 % (10-50); Mean Corpuscular HGB Conc 31.6 g/dL (31.8-35.4); Mean Corpuscular Hemoglobin 30.7 pg (27.0-31.2); Mean Corpuscular Volume 97.4 fl (80-94); Mean Platelet Volume 7.5 fl (7.4-10.4); Monocytes # 0.5 K/mm3 (0.1-1.0); Monocytes % 5.4 % (1.7-9.3); Neutrophils # 6.2 K/mm3 (1.8-7.8); Neutrophils % 74.6 % (37.0-80.0); Platelet Count 246 K/mm3 (142-424); Red Cell Distribution Width 13.5 % (11.5-17.5); White Blood Count 8.4 K/mm3 (4.5-13.0)
[2023-01-20 07:43] LABS: Creatine Kinase > 1600 U/L (55-170); Troponin I 0.99 ng/ml (0.00-0.034)
[2023-01-20 07:45] VITALS: O2SAT 98
--- NOTE | 2023-01-20 07:47 | PC.NURSE ---
patient up with standby assist x1, walker, reports tingling in ble with improved rle tingling, still unable to have total baseline control over left foot. patient is able to roll ankle.
[2023-01-20 08:00] VITALS: BP 145/90; PULSE 70; PULSE 84; RESP 17; TEMP 37.1; O2SAT 100
--- NOTE | 2023-01-20 09:13 | EXP.PHA.PN ---
Subjective *Date: 01/20/23 *Time: 09:13 Medical Exam Vital signs and Labs for Last 24 Hours: Vital Signs Temp Pulse Pulse Resp BP Pulse Ox 01/20/23 08:00 98.7 F 84 17 145/90 H 100 01/20/23 07:45 98 01/20/23 04:00 70 01/20/23 04:00 98.2 F 68 17 122/65 98 01/20/23 00:00 80 01/20/23 00:00 98.9 F 70 17 114/61 99 01/19/23 20:00 60 01/19/23 20:00 98.5 F 62 16 123/63 99 01/19/23 16:00 105 H 01/19/23 16:00 97.5 F L 87 18 134/83 99 01/19/23 12:00 80 01/19/23 11:26 99.3 F 68 16 137/81 99 Intake and Output 01/19/23 01/20/23 01/20/23 23:59 07:59 15:59 Intake Total 480 / 3372 290 / 590 300 / 590 Output Total 0 / 129 0 / 0 0 / 0 Balance 480 / 3243 290 / 590 300 / 590 Intake: Intake, Oral Amount 480 / 960 240 / 540 300 / 540 Intake, Total IV Amount 50 / 50 Piperacillin/Tazo 3.375 gm In 0 50 / 50 .9 % Sodium Chloride 50 ml @ 100 mls/hr IV Q8H [facility] Rx#: [id number] Output: Output, Urine Amount 0 / 129 0 / 0 0 / 0 Other: Number of Unmeasured Voids 1 1 Number of Bowel Movements 1 Weight 60.882 kg Patient Weight 01/20/23 23:59 Weight 60.882 kg Laboratory Results - last 24 hr 01/20/23 06:06: WBC 8.4, RBC 4.30 L, Hgb 13.2 L, Hct 41.8 L, MCV 97.4 H, MCH 30.7, MCHC 31.6 L, RDW 13.5, Plt Count 246, MPV 7.5, Neut % (Auto) 74.6, Lymph % (Auto) 18.7, [place] % (Auto) 5.4, Eos % (Auto) 0.6, Baso % (Auto) 0.7, Neut # (Auto) 6.2, Lymph # (Auto) 1.6, [place] # (Auto) 0.5, Eos # (Auto) 0.1, Baso # (Auto) 0.1 01/20/23 06:06: Sodium 143, Potassium 4.0, Chloride 111 H, Carbon Dioxide 31 H, Anion Gap 5.0, BUN 12, Creatinine 0.60 L, Estimated Creat Clear 171, Estimated GFR 174, Est GFR ( Amer) 210, Glucose 91, Calcium 8.8, Magnesium 1.8, Total Bilirubin 1.5 H, AST 363 H* D, ALT 218 H, Alkaline Phosphatase 57, Total Creatine Kinase > 1600 H* D, Troponin I 0.99 H, Total Protein 6.5, Albumin 3.7, Globulin 2.8, Albumin/Globulin Ratio 1.3 I & O for Labs for Last 24 Hours: Intake & Output 01/17/23 01/18/23 01/19/23 01/20/23 23:59 23:59 23:59 23:59 Intake Total 2135 / 2135 2415 / 2415 3372 / 3372 590 / 590 Output Total 1000 / 1600 1350 / 1350 129 / 129 0 / 0 Balance 1135 / 535 1065 / 1065 3243 / 3243 590 / 590 Weight 60.146 kg 60.872 kg 60.736 kg 60.882 kg Microbiology Reports for the Last 24 Hours: Microbiology 01/17/23 04:20 Blood Blood Culture - Preliminary NO GROWTH AFTER 48 HOURS 01/17/23 04:20 Blood Blood Culture - Preliminary NO GROWTH AFTER 48 HOURS The patient's infection will respond to the chosen ABx?: Yes (BLOOD CULTURES NEGATIVE, WBC TRENDING DOWN TO WNL, AFEBRILE) Is the patient receiving the right drug, dose, and route?: Yes Could a more targeted ABx be ordered?: No
--- NOTE | 2023-01-20 09:29 | EXP.CARD.PN ---
Subjective Subjective Date: 01/20/23 Time: 09:29 Principal diagnosis: Rhabdomyolysis, Drug Overdose, NSTEMI Interval history: 17-year-old male ambulating in the hallway with assistance and a walker in no acute distress. States he is feeling stronger each day. No complaints overnight. Mental confusion is a concern but seems to be improving per patient and grandmother. Blood pressure and heart rate remain stable. CPK continues to trend down. His troponin is near normal. Echocardiogram shows normal ejection fraction with no wall motion abnormality or evidence of obstructive cardiomyopathy. Lab work reviewed showing mild macrocytosis which seems to improve. Low vitamin D level noted. Elevated procalcitonin on admission with low TSH which will be repeated today Exam Data for Last 24 hours Vital signs and Labs for Last 24 Hours: Temp Pulse Resp BP Pulse Ox 98.7 F 84 17 145/90 H 100 01/20/23 08:00 01/20/23 08:00 01/20/23 08:00 01/20/23 08:00 01/20/23 08:00 Laboratory Results - last 24 hr 01/20/23 06:06: WBC 8.4, RBC 4.30 L, Hgb 13.2 L, Hct 41.8 L, MCV 97.4 H, MCH 30.7, MCHC 31.6 L, RDW 13.5, Plt Count 246, MPV 7.5, Neut % (Auto) 74.6, Lymph % (Auto) 18.7, [place] % (Auto) 5.4, Eos % (Auto) 0.6, Baso % (Auto) 0.7, Neut # (Auto) 6.2, Lymph # (Auto) 1.6, [place] # (Auto) 0.5, Eos # (Auto) 0.1, Baso # (Auto) 0.1 01/20/23 06:06: Sodium 143, Potassium 4.0, Chloride 111 H, Carbon Dioxide 31 H, Anion Gap 5.0, BUN 12, Creatinine 0.60 L, Estimated Creat Clear 171, Estimated GFR 174, Est GFR ( Amer) 210, Glucose 91, Calcium 8.8, Magnesium 1.8, Total Bilirubin 1.5 H, AST 363 H* D, ALT 218 H, Alkaline Phosphatase 57, Total Creatine Kinase > 1600 H* D, Troponin I 0.99 H, Total Protein 6.5, Albumin 3.7, Globulin 2.8, Albumin/Globulin Ratio 1.3 I & O for Last 24 hours: Intake & Output 01/17/23 01/18/23 01/19/23 01/20/23 11:59 11:59 11:59 11:59 Intake Total 600 / 600 2990 / 2990 3372 / 3372 1550 / 1550 Output Total 650 / 650 1700 / 1700 129 / 129 0 / 0 Balance -50 / -50 1290 / 1290 3243 / 3243 1550 / 1550 Weight 132 lb 9.6 oz 134 lb 3.2 oz 133 lb 14.4 oz 134 lb 3.549 oz Microbiology Reports for the Last 24 Hours: Microbiology 01/17/23 04:20 Blood Blood Culture - Preliminary NO GROWTH AFTER 48 HOURS 01/17/23 04:20 Blood Blood Culture - Preliminary NO GROWTH AFTER 48 HOURS Constitutional Constitutional: no acute distress *Routine Respiratory Exam Respiratory: Present CTA bilaterally *Routine Cardiovascular Exam Cardiovascular: Present RRR Progress Note: A&P Assessment and plan (1) Myositis: Status: Acute (2) Left peroneal nerve injury: Status: Acute (3) NSTEMI (non-ST elevated myocardial infarction): Status: Acute (4) Rhabdomyolysis: Status: Acute (5) Bilateral leg weakness: Status: Acute (6) Leukocytosis: Status: Acute (7) POTS (postural orthostatic tachycardia syndrome): Status: Acute (8) Opiate abuse, episodic: Status: Acute Assessment and Plan Assessment and Plan for All Diagnoses:: 1.? Myositis, Hepatitis, rhabdomyolysis likely related to sedentary episode caused by recent drug use/accidental overdose, improving.? Defer to Dr. Edwards 2.? History of HOCM, echo this admission shows normal ejection fraction with no evidence of hypertrophy or obstructive component. 3.? History of POTS, non-medication treatment reviewed since patient is reluctant to take medications.? 4. Non-STEMI felt secondary to hypoxic episode related to accidental drug overdose. No further treatment at this time but will obtain a coronary CTA as an outpatient. 5. Elevated procalcitonin on admission we will repeat on blood work obtained earlier today. Likely an acute phase reactant due to above events. 6. Low TSH with normal free T4 on admission, will repeat on blood work obtained earlier today. Patient possibly has subclinical hypert
[2023-01-20 10:01] LABS: Free Thyroxine Index 3.1 ug/dL (5.93-13.13); Procalcitonin 1.46 ng/mL (0.0-2.0); T4 (Thyroxine) 9.4 ug/dl (5.53-11.0); Triiodothryronine (T3) Uptake 33 % (23.5-40.5)
[2023-01-20 10:15] LABS: Thyroid Stimulating Hormone 4.13 uIU/mL (0.465-4.68)
[2023-01-20 10:31] LABS: HSV 1 IgG, Type Spec <0.91 index (0.00-0.90); HSV 2 IgG, Type Spec <0.91 index (0.00-0.90)
--- NOTE | 2023-01-20 10:59 | SW/DCPLANNER ---
The plan for this patient is to return home with his grandmother in [place] and return to [facility] outpatient rehab clinic in [place].
--- NOTE | 2023-01-20 11:04 | EXP.DC.SUM ---
General Admission date:: 01/17/23 Discharge date: 01/20/23 HPI HPI HPI: This is a 17-year-old male with history of POTS and HOCm, drug abuse who presents as a transfer from [facility] for evaluation of elevated troponin in the setting of known HOCM. Patient initially was seen at [facility] for complaints of lower extremity weakness. He reported laying in bed all day playing video games and when he went to get up he noticed weakness in his lower extremities. Of note, patient had recent overdose approximately 1 month ago. Grandmother at the bedside with whom patient lives with states that he was found unresponsive at that time, required CPR briefly with Narcan and was discharged home without further event. She reports that during the course of the day yesterday he slept most the day and was awake through the night playing video games. She reports hearing noises upstairs and went to check on him and was noted to be crawling on the ground Which prompted the visit to [facility] emergency department. Emergency department work-up significant for severely elevated troponin of 20,000. He was also noted to have a white blood cell count of 20 with no known infectious causes. Liver enzymes reveal elevated as well with 8 AST of 2000 and ALT of 377. UDS positive for marijuana and fentanyl. Dr. Moser was consulted by outside facility and recommended transfer here for echocardiogram and monitoring secondary to patient's history. Upon my review of case with outside hospital provider, CT chest abdomen and pelvis obtained without remarkable abnormalities. He did have a downtrend in his troponin to 16,000. It was reported to me that patient was able to move his lower extremities at that time. Vital signs were stable and patient was in no distress at the time of transfer. Hospital Course Hospital Course Hospital Course: 17-year-old male with presentation of lower extremity weakness at outside hospital.? Found to have significant lab abnormalities, transferred to [facility] for further management of NSTEMI, transaminitis, lower extremity weakness and tingling.? Differential diagnosis includes viral myositis, drug-induced myopathy, autoimmune myositis, significant muscle injury/dehydration/muscle ischemia,?or Compressive neuropathy to bilateral peroneal nerves left greater than right.? Monitored with serial labs and exams. Gradually improved during admission. PT and OT evaluated, will benefit from outpatient therapy. Needs further work-up with neurology as an outpatient for possible mononeuropathy. Stable for discharge home. Problems addressed as follows: NSTEMI Hypertrophic cardiomyopathy Patient reportedly diagnosed with hypertrophic cardiomyopathy as a child at [facility] in [place]. Patient initially transferred out of concern for cardiac event such as NSTEMI. Troponin on admission of 7.2. Gradually decreased to 0.9 on day of discharge. Patient had no episodes of chest pain and no ischemic changes on EKG during admission. Cardiology was consulted and assisted with management during admission. No indication for initiation of medication at this time. Echocardiogram was obtained with the following results: Conclusion 1.? Normal left ventricular size preserved left ventricular systolic function, estimated ejection fraction 55% with no regional wall motion abnormality, there is no asymmetrical septal hypertrophy, or intracavitary gradient seen.? Diastolic parameters are inconclusive. 2.? Trace mitral and tricuspid regurgitation. 3.? No significant pericardial effusion noted. 4.? Inferior vena cava is normal size with normal inspiratory collapse. At this time does not appear that he has hypertrophic septum. Suspect elevation in troponin due to suspected ischemic event from substance use. Patient had no events on telemetry during admission. No signs of symptomatic heart failure during admission. We will follow-up
[2023-01-20 11:13] VITALS: BP 152/79; PULSE 68; RESP 17; TEMP 36.9; O2SAT 99
--- NOTE | 2023-01-20 11:34 | HMH.PHAINT1 ---
Pharmacy Intervention Comments: Discussed discharge medications with patient. Patient verbalized understanding and had no questions at this time.
--- NOTE | 2023-01-20 12:24 | PC.NURSE ---
Called number on the chart to ensure the patient had received his prescriptions. No answer.
[2023-01-20 13:10] LABS: Anti-Centromere B Antibodies <0.2 AI (0.0-0.9); Anti-DNA (DS) Ab Qn <1 IU/mL (0-9); Anti-Jo-1 <0.2 AI (0.0-0.9); Anti-Smith Antibody <0.2 AI (0.0-0.9); Antichromatin Antibodies <0.2 AI (0.0-0.9); Antiscleroderma-70 Antibodies <0.2 AI (0.0-0.9); RNP Antibodies 0.3 AI (0.0-0.9); Sjogren's Anti-SS-A <0.2 AI (0.0-0.9); Sjogren's Anti-SS-B <0.2 AI (0.0-0.9)
--- NOTE | 2023-01-21 10:45 | CARE MANAGER ---
Attempted post-discharge phone interview, no issues noted.
--- NOTE | 2023-01-21 15:09 | CARE MANAGER ---
Spoke with patient grandmother, Nancy De Souza regarding patient discharge. Ms. De Souza states that patient is doing well and has no issues at this time.
[2023-01-21 18:09] LABS: Vitamin B1 205.4 nmol/L (66.5-200.0)
[2023-01-21 23:07] LABS: Acetone <.010 g/dL (0.000-0.010); Butalbital <1 ug/mL (1-10); Chlordiazepoxide <0.1 ug/mL (0.1-0.9); Diazepam <0.1 ug/mL (0.1-0.9); Ethanol <.010 g/dL (0.000-0.010); Isopropanol <.010 g/dL (0.000-0.010); Pentobarbital <1 ug/mL (1-5)
[2023-01-31 20:50] LABS: Anti-Ro (SS-A) Ab (RDL) < 20
== END 2023-01-20 12:15 | disposition home or self-care (01) | DRG 281 ==
PROVIDERS: Internal Medicine Adolescent Medicine; Nurse Practitioner Acute Care; Physician Assistant; Admitting Provider Family Medicine; Visit Provider Family Medicine
DX: I21.4 Non-ST elevation (NSTEMI) myocardial infarction (principal); I42.1 Obstructive hypertrophic cardiomyopathy; M62.82 Rhabdomyolysis; F11.10 Opioid abuse, uncomplicated; K75.9 Inflammatory liver disease, unspecified; G90.A Postural orthostatic tachycardia syndrome [POTS]; F17.200 Nicotine dependence, unspecified, uncomplicated
CPT/HCPCS: 36415; 72131; 80053; 80202; 80306; 80329; 81001; 82306; 82550; 82607; 82746; 83605; 83735; 83880; 84145; 84425; 84436; 84439; 84443; 84479; 84484; 85007; 85025; 85610; 85651; 86140; 86225; 86235; 86695; 86703; 86704; 86706; 86708; 86790; 87040; 87380; 87581; 87632; 87798; 93306; 97110; 97116; 97162; 97165; 97530; C9803; G0432; J2543; J3370; U0003; U0005